=== PATIENT | female | born 1980 | race Caucasian/White ===

== ENCOUNTER 2025-05-29 18:43 | Inpatient (IN) ==
[2025-05-29 19:30] LABS: Hematocrit (blood only) 38.3 % (37.0-47.0); Hemoglobin 12.8 g/dl (12.0-16.0); Immature Granulocytes # (auto) 0.01 K/uL (0.01-0.20); Immature Granulocytes % (auto) 0.2 %; Mean Corpuscular Hemoglobin 30.2 pg (25.0-34.0); Mean Corpuscular Volume 90.3 fL (80.0-100.0); Platelet Count 298 K/uL (130-400); RDW Standard Deviation 39.1 fL (36.4-46.3); Red Blood Count 4.24 M/uL (4.20-5.40); White Blood Count 6.50 K/ul (4.8-10.8)
[2025-05-29 19:47] LABS: Alanine Aminotransferase 10.0 U/L (7-52); Albumin Globulin Ratio 1.1 (0.9-2); Alkaline Phosphatase 53.0 U/L (34-104); Anion Gap 11.0 (3-11); Bilirubin,Total 0.3 mg/dl (0.2-1.0); Blood Urea Nitrogen 13.0 mg/dl (6-23); Calcium 9.2 mg/dl (8.6-10.3); Carbon Dioxide 21.0 mmol/L (21-32); Chloride 105.0 mmol/L (98-107); Creatinine Clr Calc Pharmacy 92.2 ml/min; Globulin 3.6 gm/dl (2.5-4.0); Glucose 139.0 mg/dl (70-99(Fasting)); Potassium 3.8 mmol/L (3.5-5.1); Sodium 137.0 mmol/L (136-145); Total Protein 7.7 gm/dl (6.0-8.3)
[2025-05-29 20:16] LABS: Appearance Urine Turbid (Clear)
[2025-05-29 20:24] LABS: Bacteria Urine Automated None Seen (Negative); Cast Urine Automated 0-2 /lpf (0-5); Epithelial Cell Urine Auto 0-2 /lpf (0-5); RBC Urine Automated >20 /hpf (0-4); WBC Urine Automated 21-50 /hpf (0-5)
[2025-05-29] MEDS: OPTIRAY 320 100ml IV ONE (20:24)
[2025-05-29] MEDS: SODIUM CHLORIDE 0.9% 1,000 ML IV ONE ×2 (20:32→23:37)
--- NOTE | 2025-05-29 20:34 | Emergency Department Note ---
ED Provider Note History of Present Illness Chief Complaint: Hematuria Stated Complaint: TROUBLE URNINATING BLOOD IN URINE Time Seen by Provider: 05/29/25 19:51 44-year-old female who presents to the emergency department with her (who also provides history) for evaluation of bloody urine, large blood clots and occasional difficulty urinating. The patient reports that she underwent a bladder tumor resection [address] Ryan. The patient reports that pathology did indicate cancer. She will be following up with [facility] for further initial reevaluation and management. Patient reports that she did have a Storey catheter for a few days after her procedure, and has not had any difficulty with urination until the past 6 hours. Patient also reports mildly increased pain. She denies any nausea, fever or chills. She rates her discomfort a 3 out of 10. Home Medications Medication Instructions Recorded Confirmed Type ibuprofen 600 mg tablet 600 mg PO Q8H PRN pain #30 tabs 12/28/22 05/22/25 Rx levonorgestrel 21 mcg/24 hr (up to 21 mcg intrauterine UD 05/27/23 05/22/25 History 8 years) 52 mg intrauterine device (Mirena) buspirone 5 mg tablet 5 mg PO BID PRN anxiety #60 tabs 05/08/25 05/22/25 Rx ergocalciferol (vitamin D2) 1,250 1,250 mcg PO Q7D #12 caps 05/08/25 05/22/25 Rx mcg (50,000 unit) capsule hydroxychloroquine 200 mg tablet 200 mg PO HS 05/14/25 05/29/25 History venlafaxine 150 mg 150 mg PO QAM #90 caps 05/15/25 05/22/25 Rx capsule,extended release 24 hr (Effexor XR) diazepam 5 mg tablet 5 mg PO ONCE anxiety #1 tab 05/16/25 05/22/25 Rx Allergies Allergy/AdvReac Type Severity Reaction Status Date / Time cinnamon Allergy Intermediate ORAL Verified 05/22/25 08:39 LESIONS nickel Allergy Mild redness/swelling Verified 05/22/25 08:39 with earrings No Known Drug Allergies Allergy Unknown NONE Verified 05/22/25 08:39 Past Med/Surg History Problem List (Updated 05/29/25 @ 23:04 by Sergio Cabrera) IUD migration (Acute) Urothelial carcinoma of bladder (Acute) IUD (intrauterine device) in place mirena Urothelial carcinoma of bladder Bladder mass Abnormal urine cytology Gross hematuria (Acute) PERI (generalized anxiety disorder) Lupus (Chronic) Medical History Bladder mass Lupus (systemic lupus erythematosus) on hydroxychloroquine Anxiety History of mitral valve prolapse per pt was told it was mild, had echo done at [facility] 2014, no burrer marker axle Decreased white blood cell count, unspecified History of broken nose Surgical History History of nasal surgery repair of septal fracture [place] teeth removed Previous section x2 Family History Grandmother (Maternal) Breast cancer Stroke Mother Fibromyalgia Other No family history of adverse response to anesthesia Denies family history of Ovarian cancer Prostate cancer Myocardial infarction Colorectal cancer Social History Smoking Status: Never smoker Second Hand Exposure: No; Do You Dip or Chew Tobacco: No; Hx Alcohol Use: Yes (Couple drinks per month) Hx Substance Use: No Preferred Language: Thai Communication Ability: Effective Visual Impairment: No Limitations Hearing Ability: Normal Roller Operator Required: No Beliefs That Will Affect Care: None marital status: Current Living Situation: Spouse current occupational status: employed 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 How many Children do You have: 2 Feels Safe at Home: Yes Childhood Exposure to Second-Hand Smoke: Yes Diet: regular caffeine: Yes during the past year weight has: remained stable Dental Care, Regularly: Yes Physical Activity Frequency: Daily Seatbelt Use: always Sunscreen Use: Yes Assistive Devices: Glasses Physical Exam Vital Signs Vital Signs - 24 hr 05/29/25 19:01 05/29/25 19:56 Temperature 36.6 C Temperature Source Oral Pulse Rate 132 H 107 H Pulse Rhythm Regular Pulse Strength Normal Respiratory Rate 18 Respiratory Effort / Characteristics Non-Labored Spontaneous Respiratory Depth Normal Respiratory Pattern Regular Blood Pressure 106/79 Blood Pressure Mean 88 Blood Pressure Position Sitting Pulse Oximetry 96 Oxygen Delivery Method Room Air Sepsis Recent Fever Within 48 Hours No Sepsis New/Unexplained Change in Mental Status N/A Sepsis Action Taken by Nursing No Action Required CONSTITUTIONAL: Healthy and well nourished. Patient does not appear in any acute distress. HEENT: No scleral icterus or conjunctival injection. RESPIRATORY: Clear to auscultation bilaterally with no wheezing, crackles, rhonchi or stridor. CARDIOVASCULAR: Regular rate and rhythm with no murmurs, rubs or gallops. GASTROINTESTINAL: Bowel sounds present in all quadrants. Patient has mild suprapubic tenderness to palpation. Negative CVA tenderness. No abdominal rigidity, guarding or rebound. MUSCULOSKELETAL: Full range of motion of all joints without discomfort. INTEGUMENTARY: No rash or other significant dermatologic conditions noted. HEMATOLOGIC: No ecchymosis or petechiae. PSYCHIATRIC: Positive affect. NEUROLOGIC: No focal neurologic deficits noted. Course Course Patient history and physical exam were performed. Nurses notes were reviewed. Vital signs were reviewed and were normal. IV access was established, and labs were ordered and drawn. The patient refused any analgesics or antiemetics on initial exam. Review of labs shows relatively normal CBC, coag studies and CMP. The patient does have a mildly elevated glucose of 139. Urinalysis could not be completed because of gross hematuria. Urine cultures are pending. CT with IV contrast of the abdomen and pelvis shows hyperdense material within the bladder, most likely secondary to blood. Patient is also noted to have a inferior migrating IUD, with one of the transverse arms either prominently tenting the bladder wall anteriorly or potentially extending through the bladder wall into the bladder lumen. Findings were discussed with the patient, as well as Dr. Alcantara, ED attending physician. At this point, I did reach out to [facility] urology, who does plan a cystoscopy in the morning. I also discussed the case further with [facility] on-call (Dr. Potter) to advise him of the situation. Patient was in agreement with admission. The case was further discussed with the [facility] hospitalist service. Please see hospitalist, urology and [facility] dictations for further treatment and final disposition. Administered Medications Discontinued Medications Sodium Chloride (Nss) 1,000 mls @ 999 mls/hr IV .Q1H1M ONE Stop: 05/29/25 21:14 Last Infusion: 05/29/25 22:03 Dose: Infused Documented By: JOSE MANUEL Admin: 05/29/25 20:32 Dose: 999 mls/hr Documented By: JOSE MANUEL Ioversol (Optiray 320 100ml) 90 ml IV ONCE ONE Stop: 05/29/25 20:24 Last Admin: 05/29/25 20:24 Dose: 90 ml Documented By: ARMINDA Medical Decision Making Medical Records Attestation: I reviewed the patient's medical records. Home Medications was personally reviewed by me Laboratory Data Attestation: I reviewed the patient's lab results. 05/29/25 19:13 05/29/25 19:13 Lab Results 05/29/25 05/29/25 05/29/25 Range/Units 19:13 19:55 19:57 WBC 6.50 (4.8-10.8) K/ul RBC 4.24 (4.20-5.40) M/uL Hgb 12.8 (12.0-16.0) g/dl Hct 38.3 (37.0-47.0) % MCV 90.3 (80.0-100.0) fL MCH 30.2 (25.0-34.0) pg MCHC 33.4 (32.0-36.0) g/dL RDW Std Deviation 39.1 (36.4-46.3) fL RDW Coeff of Rajan 11.9 (11.5-14.5) % Plt Count 298 (130-400) K/uL MPV 9.6 (9.4-12.4) fL Immature Gran % (Auto) 0.2 % Neut % (Auto) 81.9 % Lymph % (Auto) 11.2 % Hughes % (Auto) 6.2 % Eos % (Auto) 0.3 % Baso % (Auto) 0.2 % Neut # (Auto) 5.33 (1.40-6.50) K/uL Lymph # (Auto) 0.73 L (1.20-3.40) K/uL Hughes # (Auto) 0.40 (0.11-0.59) K/uL Eos # (Auto) 0.02 (0.00-0.50) K/uL Baso # (Auto) 0.01 (0.00-0.20) K/uL Immature Gran # (Auto) 0.01 (0.01-0.20) K/uL APTT Cancelled 28 PTT Ratio Cancelled 1.0 Sodium 137 (136-145) mmol/L Potassium 3.8 (3.5-5.1) mmol/L Chloride 105 (98-107) mmol/L Carbon Dioxide 21 (21-32) mmol/L Anion Gap 11 (3-11) BUN 13 (6-23) mg/dl Creatinine 0.75 (0.6-1.2) mg/dl Est Cr Clr Drug Dosing 92.2 ml/min eGFR 100.62 BUN/Creatinine Ratio 17.3 (10-20) Glucose 139 H (70-99(Fasting)) mg/dl Calcium 9.2 (8.6-10.3) mg/dl Total Bilirubin 0.3 (0.2-1.0) mg/dl AST 19 (13-39) U/L ALT 10 (7-52) U/L Alkaline Phosphatase 53 (34-104) U/L Total Protein 7.7 (6.0-8.3) gm/dl Albumin 4.1 (3.4-5.0) gm/dl Globulin 3.6 (2.5-4.0) gm/dl Albumin/Globulin Ratio 1.1 (0.9-2) Urine Color See Comment Urine Appearance Turbid A (Clear) Urine pH Not Reportable Ur Specific [place] 1.025 (1.000-1.030) Urine Protein Not Reportable Urine Glucose (UA) Not Reportable Urine Ketones Not Reportable Urine Blood Not Reportable Urine Nitrite Not Reportable Urine Bilirubin Not Reportable Urine Urobilinogen Not Reportable Ur Leukocyte Esterase Not Reportable Urine WBC (Auto) 21-50 (0-5) /hpf Urine RBC (Auto) >20 (0-4) /hpf U Hyaline Cast (Auto) 0-2 (0-5) /lpf U Epithel Cells (Auto) 0-2 (0-5) /lpf Urine Bacteria (Auto) None Seen (Negative) Urine Comment Imaging Data Attestation: I personally reviewed and interpreted this imaging study as follows: My Impression: My interpretation of a CT with IV contrast of the abdomen and pelvis shows probable blood products within the pelvis. Radiologist also makes mention of an inferiorly migrating IUD with possible extension of one of the IUD legs penetrating through, or possibly tenting the bladder wall. Radiologist report was also reviewed with concurrence. Radiologist's Impression: Abdomen/Pelvis CT 05/29/25 20:14 Exam(s): CT ABDOMEN + PELVIS With Contrast IV Amt: 90cc opti 320 EXAM: CT Abdomen and Pelvis With Intravenous Contrast CLINICAL HISTORY: Lower abd pain, hematuria, s/p bladder mass resect. TECHNIQUE: Axial computed tomography images of the abdomen and pelvis with intravenous contrast. CTDI is 19.54 mGy and DLP is 796.9 mGy-cm. Automated exposure control was utilized for the study. A dose lowering technique was utilized adhering to the principles of ALARA. CONTRAST: Patient received 90cc opti 320 of IV contrast COMPARISON: CT abdomen and pelvis with and without contrast 05/16/2025 FINDINGS: Lung bases: Unremarkable. No mass. No consolidation. ABDOMEN: Liver: Unremarkable. No mass. Gallbladder and bile ducts: Unremarkable. No calcified stones. No ductal dilation. Pancreas: Unremarkable. No mass. No ductal dilation. Spleen: Unremarkable. No splenomegaly. Adrenals: Unremarkable. No mass. Kidneys and ureters: Unremarkable. No solid mass. No hydronephrosis. Stomach and bowel: Unremarkable. No obstruction. No mucosal thickening. PELVIS: Appendix: No findings to suggest acute appendicitis. Bladder: When compared to the previous examination, the pedunculated mass extending from the right anterolateral bladder is no longer present. There is persistent asymmetric wall thickening, measuring 7 mm in this region. In addition, there is irregular areas of hyperdense material within the bladder. There is a rounded component posteriorly measuring 4. 3 x 5.6 x 5.1 cm. No delayed phase imaging performed. Reproductive: The previously noted low-lying IUD, primarily identified in the lower uterine segment and cervix now demonstrates extension of one of the transverse arms into what appears to be the posterior aspect of the bladder. This appears to be more prominent than on the previous examination with the lateral margin of the transverse arm either prominently tenting the bladder wall anteriorly or potentially extending through the bladder wall and into the bladder (series 3; images 215 -218 and series 300; images 47). There are new left adnexal/ovarian cysts, with the larger, more lateral cyst measuring 3 cm in diameter. ABDOMEN and PELVIS: Intraperitoneal space: Unremarkable. No free air. No significant fluid collection. Bones/joints: No acute fracture. No dislocation. Soft tissues: Surrounding fat stranding and edema adjacent to the right anterolateral bladder wall. Vasculature: Unremarkable. No abdominal aortic aneurysm. Lymph nodes: Unremarkable. No enlarged lymph nodes. IMPRESSION: 1. When compared to the previous examination, the pedunculated mass extending from the right anterolateral bladder is no longer present. There is persistent asymmetric wall thickening, measuring 7 mm in this region. In addition, there is irregular areas of hyperdense material within the bladder. There is a rounded component posteriorly measuring 4. 3 x 5.6 x 5.1 cm. No delayed phase imaging performed. Findings suggest residual postoperative edema with underlying clot burden within the bladder. 2. The previously noted low-lying IUD, primarily identified in the lower uterine segment and cervix now demonstrates extension of one of the transverse arms into what appears to be the posterior aspect of the bladder. This appears to be more prominent than on the previous examination with the lateral margin of the transverse arm either prominently tenting the bladder wall anteriorly or potentially extending through the bladder wall and into the bladder (series 3; images 215 -218 and series 300; images 47). Consider cystoscopic evaluation to exclude interval erosion through the bladder wall. Electronically signed by: Michael Hancock MD 05/29/25 21:04 PM MDM Narrative See ED Course section for further details of today's visit. The patient presents with complaint of blood clots and difficulty urinating after undergoing a transurethral bladder mass resection 12 days ago. Pathology did return for high-grade papillary urothelial carcinoma. Given her postop bleeding and discomfort, I did get a CT of the abdomen and pelvis, showing probable blood products within the bladder, as well as concern for an IUD possibly perforating the bladder wall. The case was discussed with urology, who does plan on a cystoscopy in the morning. Hospitalist service did admit the patient overnight. I also contacted the [facility]PER[facility] on-call to advise them of the situation as well. I did discuss possible need for antibiotics, however urology did not feel that that was needed as she would be provided preoperative antibiotics as well. Impression Gross hematuria, Urothelial carcinoma of bladder, IUD migration Discharge Plan Visit Data Chief Complaint: Hematuria Stated Complaint: TROUBLE URNINATING BLOOD IN URINE ED Provider: Mic Alcantara ED Midlevel Provider: Sergio Cabrera Discharge Problem: Gross hematuria, Urothelial carcinoma of bladder, IUD migration Patient Disposition: Admitted As Inpatient Condition: Fair Forms Stand Alone Forms: My [facility] [employer] Prescriptions Prescriptions: No Action buspirone 5 mg tablet 5 mg PO BID PRN (Reason: anxiety) Qty: 60 2RF ergocalciferol (vitamin D2) 1,250 mcg (50,000 unit) capsule 1,250 mcg PO Q7D Qty: 12 0RF Patient Comments: takes on Rx Instructions: 1 tab po weekly for 12 weeks. Complete blood work after finishing prescription diazepam 5 mg tablet 5 mg PO ONCE Qty: 1 0RF Rx Instructions: Take 30 minutes prior to procedure. Mirena 21 mcg/24 hours (8 yrs) 52 mg intrauterine device 21 mcg intrauterine UD Patient Comments: PLACED IN 2020. ibuprofen 600 mg tablet 600 mg PO Q8H PRN (Reason: pain) Qty: 30 0RF venlafaxine [Effexor XR] 150 mg capsule,extended release 24hr 150 mg PO QAM Qty: 90 3RF hydroxychloroquine 200 mg tablet 200 mg PO HS Rx Instructions: 1 tablet p.o. Wednesday, Wednesday, and Wednesday and 2 tablets all other days. Referrals Referrals: Sebastian Brand III, CRNP [Primary Care Provider] - ED DC CONDITION Conditon at Discharge Condition at Discharge: Good Discharge Problem: IUD migration Qualifiers: Encounter type: initial encounter Qualified Code(s): T83.32XA - Displacement of intrauterine contraceptive device, initial encounter
[2025-05-29 20:54] LABS: Partial Thromboplastin Time 28 Seconds (21-31)
--- NOTE | 2025-05-29 21:06 | CT Scan Report ---
Exam(s): CT ABDOMEN + PELVIS With Contrast IV Amt: 90cc opti 320 EXAM: CT Abdomen and Pelvis With Intravenous Contrast CLINICAL HISTORY: Lower abd pain, hematuria, s/p bladder mass resect. TECHNIQUE: Axial computed tomography images of the abdomen and pelvis with intravenous contrast. CTDI is 19.54 mGy and DLP is 796.9 mGy-cm. Automated exposure control was utilized for the study. A dose lowering technique was utilized adhering to the principles of ALARA. CONTRAST: Patient received 90cc opti 320 of IV contrast COMPARISON: CT abdomen and pelvis with and without contrast 05/16/2025 FINDINGS: Lung bases: Unremarkable. No mass. No consolidation. ABDOMEN: Liver: Unremarkable. No mass. Gallbladder and bile ducts: Unremarkable. No calcified stones. No ductal dilation. Pancreas: Unremarkable. No mass. No ductal dilation. Spleen: Unremarkable. No splenomegaly. Adrenals: Unremarkable. No mass. Kidneys and ureters: Unremarkable. No solid mass. No hydronephrosis. Stomach and bowel: Unremarkable. No obstruction. No mucosal thickening. PELVIS: Appendix: No findings to suggest acute appendicitis. Bladder: When compared to the previous examination, the pedunculated mass extending from the right anterolateral bladder is no longer present. There is persistent asymmetric wall thickening, measuring 7 mm in this region. In addition, there is irregular areas of hyperdense material within the bladder. There is a rounded component posteriorly measuring 4. 3 x 5.6 x 5.1 cm. No delayed phase imaging performed. Reproductive: The previously noted low-lying IUD, primarily identified in the lower uterine segment and cervix now demonstrates extension of one of the transverse arms into what appears to be the posterior aspect of the bladder. This appears to be more prominent than on the previous examination with the lateral margin of the transverse arm either prominently tenting the bladder wall anteriorly or potentially extending through the bladder wall and into the bladder (series 3; images 215 -218 and series 300; images 47). There are new left adnexal/ovarian cysts, with the larger, more lateral cyst measuring 3 cm in diameter. ABDOMEN and PELVIS: Intraperitoneal space: Unremarkable. No free air. No significant fluid collection. Bones/joints: No acute fracture. No dislocation. Soft tissues: Surrounding fat stranding and edema adjacent to the right anterolateral bladder wall. Vasculature: Unremarkable. No abdominal aortic aneurysm. Lymph nodes: Unremarkable. No enlarged lymph nodes. IMPRESSION: 1. When compared to the previous examination, the pedunculated mass extending from the right anterolateral bladder is no longer present. There is persistent asymmetric wall thickening, measuring 7 mm in this region. In addition, there is irregular areas of hyperdense material within the bladder. There is a rounded component posteriorly measuring 4. 3 x 5.6 x 5.1 cm. No delayed phase imaging performed. Findings suggest residual postoperative edema with underlying clot burden within the bladder. 2. The previously noted low-lying IUD, primarily identified in the lower uterine segment and cervix now demonstrates extension of one of the transverse arms into what appears to be the posterior aspect of the bladder. This appears to be more prominent than on the previous examination with the lateral margin of the transverse arm either prominently tenting the bladder wall anteriorly or potentially extending through the bladder wall and into the bladder (series 3; images 215 -218 and series 300; images 47). Consider cystoscopic evaluation to exclude interval erosion through the bladder wall. Electronically signed by: Michael Hancock MD 05/29/25 21:04 PM
--- NOTE | 2025-05-29 22:20 | Urology Consultation ---
Date of Consultation May 29, 2025 Assessment & Plan (1) Gross hematuria: I discussed with the treating clinician in the emergency department the patient is going to be admitted on the hospitalist service. For urologic perspective we recommend the following: I suspect the patient's hematuria may be secondary to some bladder wall oozing from her procedure. It is also possible the patient's IUD has eroded into her bladder wall also contributing this problem. I discussed with the patient that due to the findings on her CT scan may be beneficial for her to undergo a repeat cystoscopy which will allow us to fulgurate any areas of bleeding, evaluate to see if her IUD has eroded into the bladder wall, and evacuate any blood clot she is in agreement with this As the patient is experiencing some suprapubic discomfort and having difficulty urinating and passing blood clots I feel be beneficial to place a Storey catheter and this is currently in progress We will keep the patient n.p.o. after midnight with plans for cystoscopy on 05/30/2025 Serial hemoglobin and hematocrit to be followed to ensure there is not a precipitous drop in her hemoglobin and hematocrit (there is not been any drop thus far in these values) Would avoid any chemical means of DVT prophylaxis due to hematuria Additional recommendations be forthcoming based on her clinical course as it unfolds Addendum: I revisited the patient after my initial visit. Nursing staff has subsequently easily placed a 22 Chinese three-way Storey catheter. They noted a did not retrieve much in the way of blood clots even with flushing irrigating the catheter but they did obtain a large amount of grossly bloody urine. Following this procedure the patient noted that she had symptomatic relief of her urge to void and suprapubic discomfort. Will continue Storey catheter to gravity drainage. Nursing staff may flush and irrigate as needed if it becomes clogged. Otherwise, we will continue with plan as outlined above Addendum (6:20 AM): Patient's a.m. labs reviewed hemoglobin hematocrit are 9.4 and 27.9. Patient revisited bedside and she is hemodynamically stable without hypotension or tachycardia. She denies any lightheadedness or dizziness. Storey catheter continues to drain bloody urine. The patient does note that the suprapubic discomfort she experienced at time of admission markedly improved with insertion of Storey catheter and she remains relatively asymptomatic in this regard. Due to drop noted in hemoglobin and hematocrit as well as findings on CT scan I believe the patient would benefit from cystoscopy this morning, and she has been added to the OR schedule this morning. The patient has been n.p.o. since midnight. History of Present Illness Reason for Consultation: Hematuria History of Present Illness This is a 44-year-old female known to [facility] physician group urology. On 05/17/2025 Dr. Ryan performed a transurethral resection of the bladder tumor. The patient was discharged home the day of this procedure with a Storey catheter in place. Postoperatively she did have some issues with clogging of her Storey catheter where she reported to [facility] where her catheter was flushed and irrigated successfully. She simply followed up with Dr. Ryan on 05/22/2025 where she had a voiding trial and her catheter was removed. Due to the pathology from her procedure (high-grade urothelial carcinoma) the patient was referred to [facility] and the patient says that she has since gone to [facility] and there are plans in place for potential repeat cystoscopy with additional biopsies. The patient has that she was doing well since her most recent visit with Dr. Ryan however earlier today she began passing blood clots at approximate 1:00 PM. She said that she is able to urinate small amounts with some discomfort. She denies any fevers, shakes, or chills. She says that she does not take any anticoagulants. Patient does note that with her current symptomatology she does have some suprapubic discomfort. She denies any back or flank pain. Since arrival to the hospital this evening the patient had labs and imaging wh ich I independent reviewed. A CT scan of the abdomen pelvis showed the patient had no free intraperitoneal air or free intraperitoneal fluid. Imaging of the bladder revealed the patient had hyperdense material layering in the bladder measuring approximately 3 x 5.6 x 5.1 cm. The patient is noted to have a low- lying IUD which shows that what one of the transverse arms appears to be in communication with the posterior aspect of the bladderthere is unclear if this arm of the IUD is causing tenting of the bladder or if it has extended into the bladder wall. Labs included CBC white blood cell count, hemoglobin, hematocrit, and platelet count were normal. Coagulation studies showed no evidence of coagulopathy. Chemistry profile showed sodium and potassium as well as the BUN and creatinine were normal. Urinalysis showed turbid urine but was otherwise not indicative of infection. At the time of my interview the patient was in no distress Allergies Allergy/AdvReac Type Severity Reaction Status Date / Time cinnamon Allergy Intermediate ORAL Verified 05/22/25 08:39 LESIONS nickel Allergy Mild redness/swelling Verified 05/22/25 08:39 with earrings No Known Drug Allergies Allergy Unknown NONE Verified 05/22/25 08:39 Home Medications Medication Instructions Recorded Confirmed Type ibuprofen 600 mg tablet 600 mg PO Q8H PRN pain #30 tabs 12/28/22 05/22/25 Rx levonorgestrel 21 mcg/24 hr (up to 21 mcg intrauterine UD 05/27/23 05/22/25 History 8 years) 52 mg intrauterine device (Mirena) buspirone 5 mg tablet 5 mg PO BID PRN anxiety #60 tabs 05/08/25 05/22/25 Rx ergocalciferol (vitamin D2) 1,250 1,250 mcg PO Q7D #12 caps 05/08/25 05/22/25 Rx mcg (50,000 unit) capsule hydroxychloroquine 200 mg tablet 200 mg PO HS 05/14/25 05/29/25 History venlafaxine 150 mg 150 mg PO QAM #90 caps 05/15/25 05/22/25 Rx capsule,extended release 24 hr (Effexor XR) diazepam 5 mg tablet 5 mg PO ONCE anxiety #1 tab 05/16/25 05/22/25 Rx Patient History Medical History Bladder mass Lupus (systemic lupus erythematosus) on hydroxychloroquine Anxiety History of mitral valve prolapse per pt was told it was mild, had echo done at [facility] 2014, 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 Decreased white blood cell count, unspecified History of broken nose Surgical History History of nasal surgery repair of septal fracture [place] teeth removed Previous section x2 Family History Grandmother (Maternal) Breast cancer Stroke Mother Fibromyalgia Other No family history of adverse response to anesthesia Denies family history of Ovarian cancer Prostate cancer Myocardial infarction Colorectal cancer Social History Smoking Status: Never smoker Second Hand Exposure: No; Do You Dip or Chew Tobacco: No; Hx Alcohol Use: No Hx Substance Use: No Preferred Language: Congolese Communication Ability: Effective Visual Impairment: No Limitations Hearing Ability: Normal Wireless Field Technician Required: No Beliefs That Will Affect Care: None marital status: Current Living Situation: Spouse Current Living Situation Comment: 2 story. 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 How many Children do You have: 2 Other Information That Helps Us Care for You: No Feels Safe at Home: Yes Safety Concerns: Feels Safe At This Time Childhood Exposure to Second-Hand Smoke: Yes Diet: regular caffeine: Yes during the past year weight has: remained stable Dental Care, Regularly: Yes Physical Activity Frequency: Daily Seatbelt Use: always Sunscreen Use: Yes Assistive Devices: Glasses Review of Systems Review of Systems: All systems reviewed & are unremarkable except as noted in HPI & below Physical Exam Constitutional: WD/WN, vitals as above Eyes: Wears glasses ENMT: Ears: no hearing impairment and no external ear abnormality Mouth: no oropharynx abnormality Neck: trachea midline Respiratory: normal respiratory effort; no respiratory distress and no labored breathing Cardiovascular: Rate/Rhythm: regular rate and regular rhythm Gastrointestinal (Abdomen): Abdomen is soft without distention. There is no rebound tenderness or guarding. The patient did have some discomfort/pressure when her suprapubic region was palpated Musculoskeletal: No calf tenderness Skin: no rashes Neurologic: moves all extremities Psychiatric: A+Ox3, euthymic affect Genitourinary: No CVA tenderness with percussion bilaterally Results & Data Vital Signs (Past 12 Hours) Vital Signs Temp Pulse Resp BP Pulse Ox O2 Del Method 05/29/25 19:56 107 H 05/29/25 19:01 36.6 C 132 H 18 106/79 96 Room Air PG Care Time/CCT Total # of Minutes Spent Total Time Spent with Patient: Total time spent is greater than 50% in coordination of care (as documented) at patient's floor/unit and/or counseling patient: Coding Level of Care Code 39896 IN/OBS CONSULT LVL 5,80M Diagnoses Gross hematuria R31.0
--- NOTE | 2025-05-29 22:34 | History & Physical Report ---
Date of Service May 29, 2025 Assessment & Plan (1) Gross hematuria: (2) Urothelial carcinoma of bladder: (3) Bladder mass: (4) IUD (intrauterine device) in place: Plan Patient is a 44-year-old female with past medical history of SLE, PERI, and recent diagnosis of bladder cancer after a transurethral resection of bladder tumor on 05/[address] Ryan. patient presented due to 1 day of pain, difficulty urinating, hematuria, and passing blood clots within her urine. She is being a dmitted for further workup after CT imaging showed postop edema, underlying clot burden, and IUD possibly in the posterior aspect of her bladder. Planning for possible cystoscopy 05/30. #gross hematuria s/p transurethral resection of bladder tumor 05/17. AP CT showed residual postoperative edema with underlying clot burden within the bladder as well as low-lying IUD with an extension of one of the transverse arms into what appears to be the posterior aspect of the bladder. Hemodynamically stable, H&H stable, renal function stable at time of admission. Storey catheter placed in ED and irrigated Urology consulted Planning for possible cystoscopy in the morning 05/30 N.p.o. after midnight - Received 1L NSS bolus in ED, will order additional 1L NSS bolus followed by LR 100 mL/hour x 2L Defer to urology team regarding stock parts inspector consult until after cystoscopy findings - will prophylactically cover with Rocephin given recent procedure and Storey catheter use Follow urine cultures - pain control with IV Tylenol as needed Trend CBC and BMP #bladder CA - recently diagnosed with procedure 05/17. Plans to follow with [facility] for further management. #SLE - hold Plaquenil until no longer NPO, given on admission prior to midnight #Mental health - hold home buspirone and venlafaxine until no longer NPO VTE ppx: SCDs, defer chemical PPx with possible surgical management and gross hematuria Dispo: MedSurg Admission and Anticipated Discharge Date Admission Date: 05/29/25 History of Present Illness Chief Complaint: hematuria Primary Care Provider: Sebastian Brand, III, FLIP Patient is a 44-year-old female with past medical history of SLE, PERI, and recent diagnosis of bladder cancer after a TURP on 05/[address] Ryan. patient presented due to 1 day of pain, difficulty urinating, hematuria, and passing blood clots within her urine. She is being admitted for further workup after CT imaging showed postop edema, underlying clot burden, and IUD possibly in the posterior aspect of her bladder. Planning for possible cystoscopy 05/30. Patient seen at bedside with her present. She stated she had a procedure 05/17, she then had a Storey catheter until the following Wednesday (05/22). he was doing relatively well postoperatively and had small amounts of blood within her urine however nothing like her episode today with gross hematuria and significant clots in her blood. She also had difficulty urinating and significant abdominal pain. She also felt dizzy and lightheaded when she went from sitting to standing today, Hgb 12.8 (mildly decreased from baseline). Patient doing relatively well at bedside without any significant pain, Storey catheter in place s/p irrigation. She denies any recent fevers. She denies any significant nicotine or alcohol use. She is due for her evening Plaquenil, will order now. She wishes to be full code. She is agreeable to further workup including cystoscopy in the morning. She had her IUD placed in 2021. Allergies Allergy/AdvReac Type Severity Reaction Status Date / Time cinnamon Allergy Intermediate ORAL Verified 05/22/25 08:39 LESIONS nickel Allergy Mild redness/swelling Verified 05/22/25 08:39 with earrings No Known Drug Allergies Allergy Unknown NONE Verified 05/22/25 08:39 Home Medications Medication Instructions Recorded Confirmed Type ibuprofen 600 mg tablet 600 mg PO Q8H PRN pain #30 tabs 12/28/22 05/22/25 Rx levonorgestrel 21 mcg/24 hr (up to 21 mcg intrauterine UD 05/27/23 05/22/25 History 8 years) 52 mg intrauterine device (Mirena) buspirone 5 mg tablet 5 mg PO BID PRN anxiety #60 tabs 05/08/25 05/22/25 Rx ergocalciferol (vitamin D2) 1,250 1,250 mcg PO Q7D #12 caps 05/08/25 05/22/25 Rx mcg (50,000 unit) capsule hydroxychloroquine 200 mg tablet 200 mg PO HS 05/14/25 05/29/25 History venlafaxine 150 mg 150 mg PO QAM #90 caps 05/15/25 05/22/25 Rx capsule,extended release 24 hr (Effexor XR) diazepam 5 mg tablet 5 mg PO ONCE anxiety #1 tab 05/16/25 05/22/25 Rx Past Med/Surg History Problem List (Updated 05/29/25 @ 23:04 by Sergio Cabrera) IUD migration (Acute) Urothelial carcinoma of bladder (Acute) IUD (intrauterine device) in place mirena Urothelial carcinoma of bladder Bladder mass Abnormal urine cytology Gross hematuria (Acute) PERI (generalized anxiety disorder) Lupus (Chronic) Medical History Bladder mass Lupus (systemic lupus erythematosus) on hydroxychloroquine Anxiety History of mitral valve prolapse per pt was told it was mild, had echo done at [facility] 2014, 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 Decreased white blood cell count, unspecified History of broken nose Surgical History History of nasal surgery repair of septal fracture [place] teeth removed Previous section x2 Family History Grandmother (Maternal) Breast cancer Stroke Mother Fibromyalgia Other No family history of adverse response to anesthesia Denies family history of Ovarian cancer Prostate cancer Myocardial infarction Colorectal cancer Social History Smoking Status: Never smoker Second Hand Exposure: No; Do You Dip or Chew Tobacco: No; Hx Alcohol Use: No Hx Substance Use: No Preferred Language: Bengali Communication Ability: Effective Visual Impairment: No Limitations Hearing Ability: Normal [place] Administrator Required: No Beliefs That Will Affect Care: None marital status: Current Living Situation: Spouse Current Living Situation Comment: 2 story. 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 How many Children do You have: 2 Other Information That Helps Us Care for You: No Feels Safe at Home: Yes Safety Concerns: Feels Safe At This Time Childhood Exposure to Second-Hand Smoke: Yes Diet: regular caffeine: Yes during the past year weight has: remained stable Dental Care, Regularly: Yes Physical Activity Frequency: Daily Seatbelt Use: always Sunscreen Use: Yes Assistive Devices: Glasses Review of Systems Review of Systems: see HPI Physical Exam Physical Exam: The patient is awake, alert and oriented 3, well developed and well nourished, normocephalic and atraumatic, in no acute distress. Non-toxic appearing. HEENT- EOMI, mucous membranes moist. Hearing grossly intact. Heart-normal S1 and S2. No murmurs, rubs or gallops. Lungs-clear bilaterally, no respiratory distress, no accessory muscle use. Abdomen-normal bowel sounds and soft. No ascites noted. Non-tender. Extremities- no clubbing, cyanosis, or edema. Rheumatologic-normal range of motion. Psychiatric-normal affect. Results & Data Results & Data Vital Signs (Past 12 Hours) Vital Signs Temp Pulse Resp BP Pulse Ox O2 Del Method 05/29/25 19:56 107 H 05/29/25 19:01 36.6 C 132 H 18 106/79 96 Room Air Laboratory Results Reviewed CBC, PT/INR, CMP, UA Diagnostic Findings reviewed AP CT Medications Administered ED1L NSS bolus ECG Additional Comments: ordered Code Status & VTE Plan Code Status full code VTE Prophylaxis Plan VTE Prophylaxis will be ordered: Yes Supervising Physician Co-Signing Physician Notes Attending addendum: I have physically seen this patient, have supervised the GUZMAN's activities, and agree with the H&P unless as otherwise noted. Assessment and Plan: The patient is a 44-year-old female with past medical history including SLE, PERI, and recent diagnosis of bladder cancer after a transurethral resection of bladder tumor on 05/17. She presents to the emergency department after 1 day of painful difficult urination, hematuria, and passing blood clots within her urine. She did have a Storey catheter placed in the emergency department due to suggestion from urology, and the patient was referred for evaluation for admission and continued treatment to the [place] Hospitalist service. Gross hematuria/bladder cancer- Status post transurethral resection of bladder tumor on 05/17 CT scan abdomen and pelvis showed residual postoperative edema with underlying clot burden within the bladder as well as low-lying IUD with an extension of one of the transverse arms into what appears to be the posterior aspect of the bladder. Storey catheter placed in the ED and irrigated Urology consult in the ED suggest possible cystoscopy in the morning of 05/30, and patient was kept n.p.o. after midnight Status post 1 L normal saline bolus from the ED Give an additional 1 L normal saline bolus now, followed by LR at 100 mL/h x 2 L Follow urine culture and sensitivity Ceftriaxone 1g IV daily Acetaminophen 1 g IV every 8 hours as needed for mild pain or fever Serial CBC with differential and BMP SLE- Temporarily hold Plaquenil while patient is n.p.o. PERI- Temporarily hold buspirone, diazepam, and venlafaxine while n.p.o. PG Care Time/CCT Total # of Minutes Spent Total Time Spent with Patient: Total time spent is greater than 50% in coordination of care (as documented) at patient's floor/unit and/or counseling patient: Coding Level of Care Code 21495 INT INP/OBS CARE 3/75MIN Diagnoses Gross hematuria R31.0 Urothelial carcinoma of bladder C67.9 Bladder mass N32.89 IUD (intrauterine device) in place Z97.5
[2025-05-29] MEDS: HYDROXYCHLOROQUINE SULFATE 200 MG TAB PO ONE (23:19)
[2025-05-29] MEDS: cefTRIAXone SODIUM 1,000 MG/50 ML BAG IV STA (23:19)
[2025-05-29] MEDS ORDERED: ACETAMINOPHEN 1,000 MG/100 ML VIAL IV PRN (23:32)
[2025-05-29] MEDS ORDERED: ONDANSETRON INJ 2 MG/ML 2 ML VIAL IV PRN (23:32)
[2025-05-29] MEDS ORDERED: DOCUSATE SODIUM 100 MG CAP PO PRN (23:32)
[2025-05-29] MEDS ORDERED: MELATONIN 3 MG TAB PO PRN (23:32)
[2025-05-29] MEDS: LACTATED RINGER'S 1,000 ML IV SCH (23:46)
[2025-05-30 04:47] LABS: Hematocrit (blood only) 27.9 % (37.0-47.0); Hemoglobin 9.4 g/dl (12.0-16.0); Immature Granulocytes # (auto) 0.01 K/uL (0.01-0.20); Immature Granulocytes % (auto) 0.2 %; Mean Corpuscular Hemoglobin 30.5 pg (25.0-34.0); Mean Corpuscular Volume 90.6 fL (80.0-100.0); Platelet Count 201 K/uL (130-400); RDW Standard Deviation 39.7 fL (36.4-46.3); Red Blood Count 3.08 M/uL (4.20-5.40); White Blood Count 4.38 K/ul (4.8-10.8)
[2025-05-30 04:57] LABS: Anion Gap 4.0 (3-11); Blood Urea Nitrogen 9.0 mg/dl (6-23); Calcium 8.0 mg/dl (8.6-10.3); Carbon Dioxide 25.0 mmol/L (21-32); Chloride 112.0 mmol/L (98-107); Creatinine Clr Calc Pharmacy 121.3 ml/min; Glucose 97.0 mg/dl (70-99(Fasting)); Potassium 3.7 mmol/L (3.5-5.1); Sodium 141.0 mmol/L (136-145)
--- NOTE | 2025-05-30 09:19 | Urology Progress Note ---
Date of Service May 30, 2025 Assessment & Plan (1) Gross hematuria: Plan: Follow-up of gross hematuria Patient afebrile and hemodynamically stable Labs reviewedcreatinine 0.57, WBC 4.38, hemoglobin dropped to 9.4 (previously 12.8) Storey patent and draining díaz/maroon urine She reports catheter did not require additional irrigation overnight Maintain Storey catheter and manually irrigate as needed if catheter becomes obstructed Proceed with cystoscopy and possible clot evacuation and fulguration today Risks and benefits of procedure to be reviewed with patient by Dr. Tere Cope n.p.o. for procedure Patient received ceftriaxone in the emergency department Continue supportive care medical management per hospital medicine service See attending note for further details of plan of care Admission and Anticipated Discharge Date Admission Date: May 29, 2025 Supervising Physician Co-Signing Physician Notes Agree with note above. Reviewed patient's history and imaging. Agree with clot evac given large clot burden and drop in hemoglobin. Based on imaging, I do not think that her IUD is invading the bladder but will obviously investigate this further during surgery. Subjective Patient seen and examined in the emergency department. She is awake and resting in litter. Denies pain at present. Storey catheter draining appropriately with hematuria. She reports that catheter did not require irrigation overnight. No fever or chills. She is NPO. Hemoglobin 9.4 today. Review of Systems Constitutional: as per Subjective / HPI Genitourinary: as per Subjective / HPI Physical Exam Constitutional: well developed and well nourished; no acute distress Respiratory: normal respiratory effort; no respiratory distress and no labored breathing Gastrointestinal (Abdomen): Inspection/Auscultation: abdomen normal to inspection Musculoskeletal: Head/Neck/Chest: normocephalic Neurologic: moves all extremities and awake Psychiatric: Orientation: alert and oriented x 3 Genitourinary: Storey patent and draining díaz/maroon urine Results & Data Vital Signs (Past 12 Hours) Vital Signs Temp Pulse Pulse Resp BP BP Pulse Ox 05/30/25 07:14 76 05/30/25 05:09 79 18 101/64 97 05/30/25 04:36 83 19 116/66 98 05/30/25 04:01 86 17 109/61 99 05/30/25 03:03 76 19 106/65 97 05/30/25 02:30 93 H 20 113/66 97 05/30/25 02:09 80 19 115/67 97 05/30/25 01:30 97 H 19 115/62 98 05/30/25 01:00 105 H 15 116/65 98 05/30/25 00:27 90 20 110/72 96 05/30/25 00:03 90 23 116/65 98 05/29/25 23:36 100 H 19 128/70 98 05/29/25 23:25 121/71 05/29/25 23:24 99 H 20 98 05/29/25 23:24 05/29/25 23:24 36.6 C 94 H 18 121/71 98 05/29/25 23:12 101 H 22 99 05/29/25 23:00 96 H 28 H 99 05/29/25 22:57 91 H 27 H 99 05/29/25 22:36 111 H 26 H 100 05/29/25 22:30 130/79 05/29/25 22:22 129/75 05/29/25 22:20 131/77 05/29/25 22:18 106 H 15 95 05/29/25 22:15 98 H 27 H 100 05/29/25 22:00 115/84 05/29/25 21:30 88 18 91 O2 Del Method 05/30/25 07:14 05/30/25 05:09 Room Air 05/30/25 04:36 Room Air 05/30/25 04:01 Room Air 05/30/25 03:03 Room Air 05/30/25 02:30 Room Air 05/30/25 02:09 Room Air 05/30/25 01:30 Room Air 05/30/25 01:00 Room Air 05/30/25 00:27 Room Air 05/30/25 00:03 Room Air 05/29/25 23:36 Room Air 05/29/25 23:25 05/29/25 23:24 Room Air 05/29/25 23:24 Room Air 05/29/25 23:24 Room Air 05/29/25 23:12 05/29/25 23:00 05/29/25 22:57 05/29/25 22:36 05/29/25 22:30 05/29/25 22:22 05/29/25 22:20 05/29/25 22:18 05/29/25 22:15 05/29/25 22:00 05/29/25 21:30 PG Care Time/CCT Total # of Minutes Spent Total Time Spent with Patient: Total time spent is greater than 50% in coordination of care (as documented) at patient's floor/unit and/or counseling patient: Coding Level of Care Code 04825 SUB INP/OBS CARE 2/35MIN Diagnoses Gross hematuria R31.0
[2025-05-30] MEDS ORDERED: PROPOFOL IV EMULSION 10 MG/ML 20 ML VIAL IV ONE (09:57)
[2025-05-30] MEDS ORDERED: LIDOCAINE 2% 2 ML VIAL/AMP(20MG/ML) INFIL ONE (09:57)
[2025-05-30] MEDS ORDERED: ONDANSETRON INJ 2 MG/ML 2 ML VIAL ONE (09:57)
[2025-05-30] MEDS ORDERED: MIDAZOLAM HCL 1 MG/ML 2ML VIAL ONE (09:57)
[2025-05-30] MEDS: LACTATED RINGER'S 1,000 ML IV SCH (09:58)
[2025-05-30 10:12] LABS: Pregnancy Test, Serum Negative (Negative)
--- NOTE | 2025-05-30 10:15 | Anesthesiology Consultation ---
Date of Service May 30, 2025 Assessment & Plan ASA ASA3 Proposed Anesthesia Anesthesia Type: General Risk / Benefits Reviewed With: PT / POA / Parent / Guardian, Accepts Plan and Informed Consent Obtained History Surgery Operation Date: 05/30/25 08:35 Proposed Procedures p Cystoscopy Blood Clot Evac Surgery as Needed - Bala Carranza MD Height/Weight Height: 5 ft 4 in Weight: 70.5 kg Allergies Allergy/AdvReac Type Severity Reaction Status Date / Time cinnamon Allergy Intermediate ORAL Verified 05/30/25 09:42 LESIONS nickel Allergy Mild redness/swelling Verified 05/30/25 09:42 with earrings No Known Drug Allergies Allergy Unknown NONE Verified 05/30/25 09:42 Medications Home Medications Medication Instructions Recorded Confirmed Last Taken ibuprofen 600 mg tablet 600 mg PO Q8H PRN pain #30 tabs 12/28/22 05/30/25 1 Week Ago ~05/10/25 levonorgestrel 21 mcg/24 hr (up to 21 mcg intrauterine UD 05/27/23 05/30/25 2 Years Ago 8 years) 52 mg intrauterine device ~05/17/23 (Mirena) buspirone 5 mg tablet 5 mg PO BID PRN anxiety #60 tabs 05/08/25 05/30/25 05/16/25 ergocalciferol (vitamin D2) 1,250 1,250 mcg PO Q7D #12 caps 05/08/25 05/30/25 1 Week Ago mcg (50,000 unit) capsule ~05/10/25 hydroxychloroquine 200 mg tablet 200 mg PO HS 05/14/25 05/29/25 05/28/25 venlafaxine 150 mg 150 mg PO QAM #90 caps 05/15/25 05/30/25 05/17/25 06:00 capsule,extended release 24 hr (Effexor XR) diazepam 5 mg tablet 5 mg PO ONCE anxiety #1 tab 05/16/25 05/30/25 05/17/25 Active Medications Generic Name Dose Route Start Last Admin Trade Name Freq PRN Reason Stop Dose Admin Lactated Ringer's 1,000 mls @ 15 mls/hr 05/30/25 10:00 05/30/25 09:58 Lr IV 06/02/25 09:59 15 mls/hr .Q24H RICK Administration NPO Date Last Intake of Fluids: 05/29/25 Time Last Intake of Fluids: 23:00 Date Last Intake of Solids: 05/29/25 Time Last Intake of Solids: 23:00 Past Medical History Medical History Bladder cancer Bladder mass Lupus (systemic lupus erythematosus) on hydroxychloroquine Anxiety History of mitral valve prolapse per pt was told it was mild, had echo done at [facility] 2014, 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 Decreased white blood cell count, unspecified History of broken nose Exercise / Class Metabolic Activity II 4-5 Yardwork/Stairs/Walk up hill Past Family History Family History Grandmother (Maternal) Breast cancer Stroke Mother Fibromyalgia Other No family history of adverse response to anesthesia Denies family history of Ovarian cancer Prostate cancer Myocardial infarction Colorectal cancer Past Surgical History Surgical History History of transurethral resection of bladder tumor (TURBT) History of nasal surgery repair of septal fracture Hunter teeth removed Previous section x2 Past Anesthesia History No Hx of Anesthesia Complications and No Family Hx of Anesthesia Complications History of PONV No Hx of PONV and No Hx of Motion Sickness Social History Smoking Status: Never smoker Do You Dip or Chew Tobacco: No Hx Alcohol Use: No alcohol intake frequency: a few times a month Hx Substance Use: No substance use type: does not use Review of Systems denies fever/cough/ colds/ chest pain/ SOB/ LAZARA denies LAZARA Physical Exam Vital Signs Last Vital Signs Temp 36.7 C 05/30/25 09:43 Pulse 93 H 05/30/25 09:43 Resp 18 05/30/25 09:43 BP 122/66 05/30/25 09:43 Pulse Ox 97 05/30/25 09:43 O2 Del Method Room Air 05/30/25 09:43 ENMT Mouth: no TMJ abnormality and no dentition abnormality Thyromental Distance: > or= 3.5 Finger Breadths Mallampati Class: II Neck neck extension not limited Respiratory normal respiratory effort; no respiratory distress Auscultation: lungs clear to auscultation bilaterally Cardiovascular Rate/Rhythm: regular rate and regular rhythm Neurologic moves all extremities Psychiatric Orientation: alert and oriented x 3 Testing Laboratory Results 05/30/25 04:05 05/30/25 04:05 APTT 28 Seconds (21-31) 05/29/25 19:57 Urine Color See Comment 05/29/25 19:55 Urine Appearance Turbid (Clear) A 05/29/25 19:55 Urine pH Not Reportable 05/29/25 19:55 Ur Specific [place] 1.025 (1.000-1.030) 05/29/25 19:55 Urine Protein Not Reportable 05/29/25 19:55 Urine Glucose (UA) Not Reportable 05/29/25 19:55 Urine Ketones Not Reportable 05/29/25 19:55 Urine Nitrite Not Reportable 05/29/25 19:55 Ur Leukocyte Esterase Not Reportable 05/29/25 19:55 Urine WBC (Auto) 21-50 /hpf (0-5) 05/29/25 19:55 Urine RBC (Auto) >20 /hpf (0-4) 05/29/25 19:55 U Hyaline Cast (Auto) 0-2 /lpf (0-5) 05/29/25 19:55 U Epithel Cells (Auto) 0-2 /lpf (0-5) 05/29/25 19:55 Urine Bacteria (Auto) None Seen (Negative) 05/29/25 19:55
[2025-05-30] MEDS ORDERED: ONDANSETRON INJ 2 MG/ML 2 ML VIAL IV PRN (10:16)
[2025-05-30] MEDS ORDERED: ATROPINE SULFATE 0.1 MG/ML 10ML SYR IV PRN (10:16)
[2025-05-30] MEDS ORDERED: HYDROmorphone INJ 1 MG/ML SYRINGE IV PRN (10:16)
[2025-05-30] MEDS ORDERED: DexMEDEtomidine HCL IV 100 MCG/ML VIAL IV ONE (10:37)
[2025-05-30] MEDS ORDERED: PHENYLEPHRINE 100MCG/ML 5ML SYR ONE (10:40)
[2025-05-30] MEDS ORDERED: ePHEDrine sulfate 50 MG/5 ML SYR ONE (10:48)
--- NOTE | 2025-05-30 11:04 | Operative Report ---
PG Post Operative Report Pre & Post Diagnosis Gross hematuria with clot retention Operation Date: 05/30/25 08:35 <No data on this case meets the specified criteria> Gross hematuria with clot retention I identified the patient and participated in the time-out.: Yes Procedure Operation Date: 05/30/25 08:35 Actual Procedures p Cystoscopy, Blood Clot Evacuation, fulguration, and Transuretheral Bladder Tumor(Not Applicable) - Bala Carranza MD Surgeon Bala Carranza MD Supervisory Investigative Specialist None Estimated Blood Loss 0 Findings See Below Roughly 50 cc of clot burden formed and a ball in the bladder. This was evacuated out. No concern for perforation or migration of her IUD. There was a small clot attached to the dome of the bladder and when I scraped this off there was some bleeding which I suspect was the area of concern. This was fulgurated. 2 small area is right anterior wall that looks suspicious for tumor were further resected and hemostasis was appropriate. Specimens Bladder lesion Drains 22 Estonian three-way catheter with 10 cc in balloon, CBI port capped Anesthesia Type General Complications none Indications 44-year-old female with a history of a recent TURBT and invasive bladder cancer on pathology who returned in clot retention. CT showed significant clot burden in the bladder and her hemoglobin had lowered several points. Radiology question if her IUD had invaded into her bladder. Description of Procedure After informed consent was obtained, the patient was transported to the operative suite. General anesthesia was induced. They were placed in dorsal lithotomy position and prepped and draped in sterile fashion. They received preoperative ceftriaxone. An appropriate surgical timeout was performed. The resectoscope was inserted per urethra into the bladder. Taveras cystoscopy revealed the above-noted findings. The clot was evacuated out with a Eileen syringe. Using a loop, I scraped away a small clot on the dome of the bladder and there was active bleeding when this was removed. This area was fulgurated. The previous resection site was further fulgurated. There were 2 subcentimeter potential tumors on the right anterior bladder dome that I resected. There was no concern for perforation. Hemostasis was achieved. Inspection of the bladder revealed no further bleeding. Bladder was left full and scope was removed. 22 Estonian three-way catheter was inserted with return of clear urine. Balloon was inflated with 10 cc of sterile water. This concluded the end of the case. All counts correct at the end of the case. I was present scrubbed and actively participated for the entirety of the procedure. I attest to the content of the Intraoperative Record and any orders documented therein. Any exceptions are noted below.
--- NOTE | 2025-05-30 11:37 | Hospitalist Progress Note ---
Date of Service May 30, 2025 Assessment & Plan (1) Gross hematuria: (2) Urothelial carcinoma of bladder: (3) Bladder mass: (4) IUD (intrauterine device) in place: Plan Patient is a 44-year-old female with past medical history of SLE, PERI, and recent diagnosis of bladder cancer after a transurethral resection of bladder tumor on 05/[address] Ryan. patient presented due to 1 day of pain, difficulty urinating, hematuria, and passing blood clots within her urine. She is being a dmitted for further workup after CT imaging showed postop edema, underlying clot burden, and IUD possibly in the posterior aspect of her bladder. #gross hematuria s/p transurethral resection of bladder tumor 05/17. AP CT showed residual postoperative edema with underlying clot burden within the bladder as well as low-lying IUD with an extension of one of the transverse arms into what appears to be the posterior aspect of the bladder. She is now status post cystoscopy with clot evacuation and cauterization, And also insertion of a new three-way catheter. -Hemoglobin stable Appreciate Urology Per urology, hopefully remove the catheter tomorrow if the urine remains clear #bladder CA - recently diagnosed with procedure 05/17. Plans to [facility] with [facility] for further management. #SLE - Continue Plaquenil #Mental health - Continue home meds VTE ppx: SCDs, defer chemical PPx with possible surgical management and gross hematuria Dispo: Hopefully discharge in next 24 to 48 hours Admission and Anticipated Discharge Date Admission Date: May 29, 2025 Subjective Patient seen and examined, she is now status post cystoscopy, stable after procedure Review of Systems Review of Systems: All systems reviewed are negative, apart from the ones contained in the history. Physical Exam Physical Exam: The patient is awake, alert and oriented 3, well developed and well nourished, normocephalic and atraumatic, in no acute distress. Non-toxic appearing. HEENT- EOMI, mucous membranes moist. Hearing grossly intact. Heart-normal S1 and S2. No murmurs, rubs or gallops. Lungs-clear bilaterally, no respiratory distress, no accessory muscle use. Abdomen-normal bowel sounds and soft. No ascites noted. Non-tender. Extremities- no clubbing, cyanosis, or edema. Rheumatologic-normal range of motion. Psychiatric-normal affect. Results & Data Results & Data Vital Signs (Past 12 Hours) Vital Signs Temp Pulse Pulse Resp BP BP Pulse Ox 05/30/25 09:43 98.1 F 93 H 18 122/66 97 05/30/25 08:00 80 20 113/65 99 05/30/25 07:14 76 05/30/25 05:09 79 18 101/64 97 05/30/25 04:36 83 19 116/66 98 05/30/25 04:01 86 17 109/61 99 05/30/25 03:03 76 19 106/65 97 05/30/25 02:30 93 H 20 113/66 97 05/30/25 02:09 80 19 115/67 97 05/30/25 01:30 97 H 19 115/62 98 05/30/25 01:00 105 H 15 116/65 98 05/30/25 00:27 90 20 110/72 96 05/30/25 00:03 90 23 116/65 98 05/29/25 23:36 100 H 19 128/70 98 O2 Del Method 05/30/25 09:43 Room Air 05/30/25 08:00 Room Air 05/30/25 07:14 05/30/25 05:09 Room Air 05/30/25 04:36 Room Air 05/30/25 04:01 Room Air 05/30/25 03:03 Room Air 05/30/25 02:30 Room Air 05/30/25 02:09 Room Air 05/30/25 01:30 Room Air 05/30/25 01:00 Room Air 05/30/25 00:27 Room Air 05/30/25 00:03 Room Air 05/29/25 23:36 Room Air PG Care Time/CCT Total # of Minutes Spent Total Time Spent with Patient: Total time spent is greater than 50% in coordination of care (as documented) at patient's floor/unit and/or counseling patient: Coding Level of Care Code 40101 SUB INP/OBS CARE 2/35MIN Diagnoses Gross hematuria R31.0 Urothelial carcinoma of bladder C67.9 Bladder mass N32.89 IUD (intrauterine device) in place Z97.5 Time Spent (min) 35
--- NOTE | 2025-05-30 11:51 | Anesthesiology Progress Note ---
Date of Service May 30, 2025 Anesthesia Post Procedure Vital Signs Vital Signs: Temp Pulse Pulse Pulse Resp BP BP 05/30/25 09:43 36.7 C 93 H 18 122/66 05/30/25 08:00 80 20 113/65 05/30/25 07:14 76 05/30/25 05:09 79 18 101/64 05/30/25 04:36 83 19 116/66 05/30/25 04:01 86 17 109/61 05/30/25 03:03 76 19 106/65 05/30/25 02:30 93 H 20 113/66 05/30/25 02:09 80 19 115/67 05/30/25 01:30 97 H 19 115/62 05/30/25 01:00 105 H 15 116/65 05/30/25 00:27 90 20 110/72 05/30/25 00:03 90 23 116/65 05/29/25 23:36 100 H 19 128/70 05/29/25 23:25 121/71 05/29/25 23:24 99 H 20 05/29/25 23:24 05/29/25 23:24 36.6 C 94 H 18 121/71 05/29/25 23:12 101 H 22 05/29/25 23:00 96 H 28 H 05/29/25 22:57 91 H 27 H 05/29/25 22:36 111 H 26 H 05/29/25 22:30 130/79 05/29/25 22:22 129/75 05/29/25 22:20 131/77 05/29/25 22:18 106 H 15 05/29/25 22:15 98 H 27 H 05/29/25 22:00 115/84 05/29/25 21:30 88 18 05/29/25 21:00 91 H 21 124/73 05/29/25 20:42 102 H 16 05/29/25 20:14 96/73 L 05/29/25 19:56 107 H 05/29/25 19:55 126/73 05/29/25 19:01 36.6 C 132 H 18 106/79 Pulse Ox O2 Del Method 05/30/25 09:43 97 Room Air 05/30/25 08:00 99 Room Air 05/30/25 07:14 05/30/25 05:09 97 Room Air 05/30/25 04:36 98 Room Air 05/30/25 04:01 99 Room Air 05/30/25 03:03 97 Room Air 05/30/25 02:30 97 Room Air 05/30/25 02:09 97 Room Air 05/30/25 01:30 98 Room Air 05/30/25 01:00 98 Room Air 05/30/25 00:27 96 Room Air 05/30/25 00:03 98 Room Air 05/29/25 23:36 98 Room Air 05/29/25 23:25 05/29/25 23:24 98 Room Air 05/29/25 23:24 Room Air 05/29/25 23:24 98 Room Air 05/29/25 23:12 99 05/29/25 23:00 99 05/29/25 22:57 99 05/29/25 22:36 100 05/29/25 22:30 05/29/25 22:22 05/29/25 22:20 05/29/25 22:18 95 05/29/25 22:15 100 05/29/25 22:00 05/29/25 21:30 91 05/29/25 21:00 96 Room Air 05/29/25 20:42 05/29/25 20:14 05/29/25 19:56 05/29/25 19:55 05/29/25 19:01 96 Room Air Transfer of Care Handoff Completed per policy Notes Mental Status: alert / awake / arousable and participated in evaluation Patient Amnestic to Procedure: Yes Nausea / Vomiting: adequately controlled Pain: adequately controlled Airway Patency, RR, SpO2: stable & adequate BP & HR: stable & adequate Hydration State: stable & adequate Anesthetic Complications: no major complications apparent and Pt Satisfied with anesthetic care
[2025-05-30] MEDS: VENLAFAXINE HCL XR 150 MG CAPXR PO SCH (15:48)
[2025-05-30] MEDS: HYDROXYCHLOROQUINE SULFATE 200 MG TAB PO SCH (20:38)
[2025-05-30] MEDS ORDERED: HYDROXYCHLOROQUINE SULFATE 200 MG TAB PO SCH (21:00)
[2025-05-30] MEDS: cefTRIAXone SODIUM 1,000 MG/50 ML BAG IV SCH (22:05)
[2025-05-31 01:54] VITALS: RESP 16
[2025-05-31 07:09] VITALS: BP 105/65; PULSE 94; TEMP 97.9; O2SAT 98
--- NOTE | 2025-05-31 10:41 | Urology Progress Note ---
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 Patient came into the ER for gross hematuria that developed 05/29/2025 associated with small voids - underwent clot evacuation yesterday CT on 05/29/2025 showed residual postoperative edema with underlying clot burden within the bladder, possibly displaced IUD Patient afebrile and hemodynamically stable Labs currently pending today-on 05/30/2025-hemoglobin 9.4, WBCs 4.38, creatinine 0.59 Storey catheter draining clear yellow CBI was stopped last night and she reports catheter did not require additional irrigation overnight No cultures currently pending If catheter continues to drain clear yellow okay to remove prior to discharge Continue medical management and supportive care per primary team No further urological surgical intervention during this hospital stay, okay to discharge from urological perspective Patient has outpatient urology follow-up already scheduled for office She is also following with [place] [facility]/interventional radiology for possible lymph node biopsy due to enlarged right pelvic sidewall lymph node She may also contact her HANGAR ATTENDANT/PCP due to IUD findings on CT- Per op report there was no concern of perforation of the bladder or migration of her IUD Case was discussed with Dr. Ryan on-call urologist Urology will sign out, please contact our team for any questions or concerns Admission and Anticipated Discharge Date Admission Date: May 29, 2025 Subjective Patient resting comfortably in bed No acute distress Denies abdominal pain Denies fevers, chills, N/V Catheter draining clear yellow No other issues overnight Review of Systems Constitutional: as per Subjective / HPI Genitourinary: as per Subjective / HPI Physical Exam Constitutional: well developed and well nourished; no acute distress Respiratory: normal respiratory effort and able to speak in complete sentences Musculoskeletal: Extremities: extremities normal to inspection Psychiatric: Orientation: alert and oriented x 3 Results & Data Vital Signs (Past 12 Hours) Vital Signs Temp Pulse Resp BP BP Pulse Ox O2 Del Method 05/31/25 07:07 36.6 C 94 H 16 105/65 98 Room Air 05/31/25 01:53 36.7 C 85 16 113/65 97 Room Air PG Care Time/CCT Total # of Minutes Spent Total Time Spent with Patient: Total time spent is greater than 50% in coordination of care (as documented) at patient's floor/unit and/or counseling patient: Coding Level of Care Code 28593 SUB INP/OBS CARE 3/50MIN Diagnoses Gross hematuria R31.0 Urothelial carcinoma of bladder C67.9 Bladder mass N32.89 Comment Greater than 50 minutes reviewing chart, documentation, coordinating care
[2025-05-31 11:13] LABS: Hematocrit (blood only) 32.5 % (37.0-47.0); Hemoglobin 10.5 g/dl (12.0-16.0); Mean Corpuscular Hemoglobin 29.8 pg (25.0-34.0); Mean Corpuscular Volume 92.3 fL (80.0-100.0); Platelet Count 222 K/uL (130-400); RDW Standard Deviation 41.1 fL (36.4-46.3); Red Blood Count 3.52 M/uL (4.20-5.40); White Blood Count 4.78 K/ul (4.8-10.8)
--- NOTE | 2025-05-31 11:39 | Discharge Summary ---
Date of Service May 31, 2025 Admission HPI Per Admitting Provider Patient is a 44-year-old female with past medical history of SLE, PERI, and recent diagnosis of bladder cancer after a TURP on 05/[address] Ryan. patient presented due to 1 day of pain, difficulty urinating, hematuria, and passing blood clots within her urine. She is being admitted for further workup after CT imaging showed postop edema, underlying clot burden, and IUD possibly in the posterior aspect of her bladder. Planning for possible cystoscopy 05/30. Patient seen at bedside with her present. She stated she had a procedure 05/17, she then had a Carroll catheter until the following Wednesday (05/22). he was doing relatively well postoperatively and had small amounts of blood within her urine however nothing like her episode today with gross hematuria and significant clots in her blood. She also had difficulty urinating and significant abdominal pain. She also felt dizzy and lightheaded when she went from sitting to standing today, Hgb 12.8 (mildly decreased from baseline). Patient doing relatively well at bedside without any significant pain, Carroll catheter in place s/p irrigation. She denies any recent fevers. She denies any significant nicotine or alcohol use. She is due for her evening Plaquenil, will order now. She wishes to be full code. She is agreeable to further workup including cystoscopy in the morning. She had her IUD placed in 2021. Admission Exam (Per Admitting) Constitutional The patient is awake, alert and oriented 3, well developed and well nourished, normocephalic and atraumatic, lying in bed and in no acute distress. HEENT--PERRL, EOMI, mucous membranes and oropharynx mildly dry Neck--supple. No JVD. No bruits. Thyroid normal, trachea midline, no adenopathy. Heart--normal S1 and S2. No murmurs, rubs or gallops. Lungs--clear bilaterally, no respiratory distress, no accessory muscle use. Abdomen--normal bowel sounds and soft. Extremities--no cyanosis or clubbing. No edema. Dermatologic--normal skin turgor, normal color, no abnormal lymph nodes, no rash. Neurologic--cranial nerves II through XII grossly intact. Rheumatologic--normal range of motion. Psychiatric--normal affect. Discharge Data Consultations 05/29/25 22:37 Consult Urology Routine 05/29/25 23:04 ED Decision to Admit Stat Procedures Performed Operation Date: 05/30/25 08:35 Actual Procedures p Cystoscopy, Blood Clot Evacuation, and Transuretheral Bladder Tumor(Not Applicable) - Bala Carranza MD Hospital Course (1) Gross hematuria: (2) Urothelial carcinoma of bladder: (3) Bladder mass: (4) IUD (intrauterine device) in place: Plan Patient is a 44-year-old female with past medical history of SLE, PERI, and recent diagnosis of bladder cancer after a transurethral resection of bladder tumor on 05/[address] Ryan. patient presented due to 1 day of pain, difficulty urinating, hematuria, and passing blood clots within her urine. She is being admitted for further workup after CT imaging showed postop edema, underlying clot burden, and IUD possibly in the posterior aspect of her bladder. #gross hematuria s/p transurethral resection of bladder tumor 05/17. AP CT showed residual postoperative edema with underlying clot burden within the bladder as well as low-lying IUD with an extension of one of the transverse arms into what appears to be the posterior aspect of the bladder. She is now status post cystoscopy with clot evacuation and cauterization, And also insertion of a new three-way catheter. -Hemoglobin stable Appreciate Urology Urine is clear and carroll removed -Discharge home to follow up with urology #bladder CA - recently diagnosed with procedure 05/17. Plans to follow with [facility] for further management. #SLE - Continue Plaquenil #Mental health - Continue home meds VTE ppx: SCDs, defer chemical PPx with possible surgical management and gross hematuria Dispo: d/c home Coding Level of Care Code 23569 INP/OBS DISCH >30 MIN Diagnoses Gross hematuria R31.0 Urothelial carcinoma of bladder C67.9 Bladder mass N32.89 IUD (intrauterine device) in place Z97.5 Time Spent (min) 35
--- NOTE | 2025-05-31 16:04 | Electrocardiogram Report ---
Test Reason : Blood Pressure : */* mmHG Vent. Rate : 97 BPM Atrial Rate : 97 BPM P-R Int : 136 ms QRS Dur : 84 ms QT Int : 328 ms P-R-T Axes : 67 67 53 degrees QTcB Int : 416 ms Normal sinus rhythm Nonspecific T wave abnormality Abnormal ECG When compared with ECG of 11-May-2025 11:59, Nonspecific T wave abnormality now evident in Anterolateral leads Confirmed by Shun Leblanc ([id number]) on 05/31/2025 4:04:09 PM Referred By: REFERRED SELF Confirmed By: Shun Leblanc
[2025-05-31] MEDS ORDERED: HYDROXYCHLOROQUINE SULFATE 200 MG TAB PO SCH (21:00)
== END 2025-05-31 12:22 | disposition home or self-care (01) | DRG 908 ==
LOC: ED 18:43 → EDINP 22:37 → SUATTDRO 22:37 → EDINP 05-30 09:31 → 3N 05-30 13:09